=== PATIENT | male | born 2000 | race Caucasian/White ===

== ENCOUNTER 2024-08-18 15:32 | Emergency (ER) | payer SELFPAY ==
--- OUTSIDE RECORDS SUMMARY | 2024-08-18 15:35 | XMS_ITS | CONTINUITY OF CARE DOCUMENT ---
Author Name jhony alensadie Address Unknown Organization [facility] Address [address] [place] [address] Phone [phone] Care Team Providers Care Regional Driver Name Role Phone Alvin Ventura MD Unavailable TREVA IGLESIAS MD Unavailable [phone] PROBLEMS Condition Status Date Provider Notes Cardiology examination active Alvin Ventura MD Varicose veins active Alvin Ventura MD Family history of CAD active Alvin Jacobo ENCOUNTERS Date Type Provider Location Encounter Diag nosis - In-person encounter Office Visit Alvin Ventura MD [facility] - In-person encounter Office Visit Alvin Ventura MD [facility] Cardiology examinationVaricose veinsFamily history of CAD VITAL SIGNS Date Observation Value Provider Body Mass Index (Ratio) 44.63 kg/m2 Mirta Ventura MD blood pressure, diastolic 81 mm[Hg] Thelma Marcelino blood pressure, systolic 145 mm[Hg] Riley Marcelino oxygen saturation, oximetry 98 % Iman Marcelino pulse rate 87 /min Iman jacobo weight E&M 320 [lb_av] Iman jacobo respiratory rate E&M 16 /min Flaca Marcelino blood pressure, cuff size large Thelma Graysonand height E&M 71 [in_i] Iman jacobo Body Mass Index (Ratio) 44.63 kg/m2 Mirta Ventura MD blood pressure, diastolic 76 mm[Hg] Junie nkLogic blood pressure, systolic 136 mm[Hg] Glendy Martinoglaurel blood pressure, diastolic 76 mm[Hg] Nadine alcala Saul blood pressure, systolic 136 mm[Hg] Leonela olmstead Saul oxygen saturation, oximetry 95 % Rachelle Hughes respiratory rate E&M 18 /min Rachelle Hughes pulse rate 65 /min Rachelle Hughes height E&M 71 [in_i] Rachelle Hughes weight E&M 320 [lb_av] Rachelle Hughes HISTORY OF MEDICATION USE No Known Medication SOCIAL HISTORY Date Observation Value Provider social history E&M Patient vapes . Smoking History: Gurvinder sun has never smoked. Alvin Ventura MD social history reviewed E&M revi ewed - no changes required Alvin Ventura MD smoking status Never smoker Iman Grayson and number of grandchildren Alvin Ventura MD U berto Ventura MD drug use no Alvin Ventura MD alcohol use, average drinks per day social Alvin Ventura MD alcohol use yes Alvin Ventura MD social history E&M Patient vapes . Smoking History: Gurvinder dino has never smoked. Alvin Ventura MD smoking status Never smoker Alvin Ventura MD social history reviewed E&M revi ewed - no changes required Alvin Ventura MD INSURANCE PROVIDERS Payer name Policy type / Coverage type [facility] libertarian ID [id number] insurance [employer] [id number] ADVANCE DIRECTIVES Name Date DISCUSSED - NO DECISION MADE TREATMENT PLAN Date Name Performer [id number],S, Alvin Ventura MD [id number],C,P t used compression socks for a couple days but they have ripped when he uses them. He has severe GSV reflux bilaterally, worse on the right. He will need closure of the vein along with compression socks. He may need microphlebectomy Alvin Ventura MD [id number],S, Alvin Ventura MD [id number],C, H e has large varicosities on his medial thighs and calves. Will arrange for a venous doppler. I will give him a prescription for waist high compression hose. Alvin Ventura MD Cardiology Alvin Ventura MD Cardiology:Pt used c ompression socks for a couple days but they have ripped when he uses them. He has severe GSV reflux bilaterally, worse on the right. He will need closure of the vein along with compression socks. He may need microphlebectomy Alvin Ventura MD Cardiology Alvin Ventura MD Cardiology: H e has large varicosities on his medial thighs and calves. Will arrange for a venous doppler. I will give him a prescription for waist high compression hose. Alvin Ventura MD Date Name Venous Doppler Bilat erajordon LE - Reflux HISTORY OF PROCEDURES Procedure Date Procedure Name Provider Procedure Notes S tatus EKG Alvin Ventura MD completed
[2024-08-18 15:38] VITALS: BP 172/77; PULSE 93; RESP 18; TEMP 36.3; O2SAT 100
--- OUTSIDE RECORDS SUMMARY | 2024-08-18 16:11 | XMS_ITS | Clinical Summary ---
Author Organization [facility] Address [address] [place] [address] Care Team Providers Care Professor Of Biology Name Role Phone Marsha Cuevas MD Primary Care Provider [phone] Source Comments [facility] [employer],non-owned Affiliates and Associated Physician Practices is amultiple site organization consisting of ambulatory clinics and hospital sitesin [place], [place], [place] and [place]. This disclosure is being madepursuant to the Care Everywhere program and may not contain all information available regarding this patient. Last updated 18.[facility] [employer] Allergies No known active allergies Medications * Be aware that medications may not be up to date on this document. Alwaysverify current medications with the patient. Medication Sig Dispensed Refills Start Date End Date Status albuterol (PROVENTIL;VENTOLIN) (5 MG/ML) 0.5% nebulizer solution Inhale 2.5 mg by mouth 4 times daily as needed. Active albuterol HFA (PROVENTIL;VENTOLIN;P ROAIR) 108 (90 BASE) MCG/ACT inhaler Inhale 2 Puffs by mouth every 6 hours as needed. 1 Inhaler 5 04/11/2012 Active ibuprofen (MOTRIN) 400 MG tablet Take 1 Tab by mouth every 6 hours as needed for Pain 120 Tab 2 03/05/2016 Active Active Problems No known active problems Social History Tobacco Use Types Packs/Day Years Used Date Smoking Tobacco: Never Alcohol Use Standard Drinks/Week Comments Not Asked 0 (1 standard drink = 0.6 oz pur e alcohol) Sex and Gender Information Value Date Recorded Sex Assigned at Not on file Gender Identity Not on file Sexual Orientation Not on file Last Filed Vital Signs Vital Sign Reading Time Taken Comments Blood Pressure 129/50 04/10/2012 11:24 PM WELDING MACHINE OPERATOR RESISTANCE Pulse 108 04/11/2012 1:09 AM WELDING MACHINE OPERATOR RESISTANCE Temperature 36.7 C (98 F) 04/11/2012 1:09 AM WELDING MACHINE OPERATOR RESISTANCE Respiratory Rate 20 04/11/2012 1:09 AM WELDING MACHINE OPERATOR RESISTANCE Oxygen Saturation 97% 04/11/2012 1:23 AM WELDING MACHINE OPERATOR RESISTANCE Inhaled Oxygen Concentration - - Weight 76.7 kg (169 lb 1.5 oz) 04/10/2012 11:24 PM WELDING MACHINE OPERATOR RESISTANCE Height - - Body Mass Index - - Plan of Treatment Health Maintenance Due Date Last Done Comments HIV SCREENING 08/05/2015 HPV VACCINE (1 - Male 3-dose series) 08/05/2015 HEPATITIS C SCREENING 07/31/2018 DTAP/TDAP/TD VACCINES (1 - Tdap) 08/05/2019 HEPATITIS B VACCINE (1 of 3 - 19+ 3-dose series) 08/05/2019 COVID-19 VACCINE (1 - 2023-2 5 season) 2024 INFLUENZA VACCINE (#1) 2024 DEPRESSION SCREENING 05/30/2024 ZOSTER VACCINE (1 of 2) 2050 HIB VACCINE Aged Out No longer eligi ble based on patient's age to complete this topic MENINGOCOCCAL (Group B) VACC INE SHARED DECISION-MAKING Aged Out No longer eligibl e based on patient's age to complete this topic MENINGOCOCCAL GROUPS A/C/Y/W VACCINE Aged Out No longer eligible b ased on patient's age to complete this topic PNEUMOCOCCAL VACCINE Aged Out No long er eligible based on patient's age to complete this topic Care Teams Professor Of Biology Relationship Specialty Start Date End Date Marsha Cuevas MD [address] [address] PCP - General Pediatrics 04/11/12
--- OUTSIDE RECORDS SUMMARY | 2024-08-18 16:12 | XMS_ITS | CONTINUITY OF CARE DOCUMENT ---
Author Name jhony alensadie Address Unknown Organization [facility] Address [address] [place] [address] Phone [phone] Care Team Providers Care Traveling Sales Representative Name Role Phone Alvin Ventura MD Unavailable TREVA IGLESIAS MD Unavailable [phone] PROBLEMS Condition Status Date Provider Notes Cardiology examination active Alvin Ventura MD Varicose veins active Alvin Ventura MD Family history of CAD active Alvin Jacobo ENCOUNTERS Date Type Provider Location Encounter Diag nosis - In-person encounter Office Visit Alvin Ventura MD [facility] - In-person encounter Office Visit Alvin Ventura MD [facility] Cardiology examinationVaricose veinsFamily history of CAD [...] Payer name Policy type / Coverage type [facility] party ID [id number] insurance [employer] [id number] ADVANCE DIRECTIVES Name Date DISCUSSED - NO DECISION MADE TREATMENT PLAN Date Name Performer [id number],S, Alvin Ventura MD [id number],C,P t used compression socks for a couple days but they have ripped when he uses them. He has severe GSV reflux bilaterally, worse on the right. He will need closure of the vein along with compression socks. He may need microphlebectomy Alvin Ventura MD [id number],S, Alvin Ventura MD [id number],C, H e has large varicosities on his [...]
[2024-08-18] MEDS: TETANUS,DIPHTHERIA,AC PERTUSSIS ADULT (0.5 ML) BOOSTRIX IM (16:43)
--- NOTE | 2024-08-18 17:06 | ED.LOWEXIN ---
HPI - Extremity Injury (Lower) General Chief Complaint: Extremity Injury, Lower Stated Complaint: My varicose vein is spuing out blood. Time Seen by Provider: 08/18/24 15:47 History of Present Illness HPI Narrative: 24-year-old male presents emergency department for a bleeding varicose vein to his right lower extremity. Patient states he was cleaning his basement yesterday and the varicose vein to his right lower leg started bleeding. He went to [facility] states he had it wrapped up and was discharged home. He states the bleeding started again today and would not stop so he came to the ED for further evaluation. Last Tdap unknown. Related Data Allergies Allergy/AdvReac Type Severity Reaction Status Date / Time No Known Allergies Allergy Verified 08/18/24 16:31 Review of Systems Review of Systems: All systems reviewed & are unremarkable except as noted in HPI and below Exam Narrative: GENERAL: Well-appearing, well-nourished, and in no acute distress. HEAD: Normocephalic, atraumatic. ENT: Nares clear, no rhinorrhea or epistaxis. Mucous membranes moist. NECK: Supple. CHEST: Clear to auscultation. No respiratory distress. HEART: Regular rate and rhythm. No murmur heard. Normal peripheral pulses. EXTREMITIES: Normal range of motion. No edema. SKIN: Very superficial abrasion to the distal right lateral her tibia, no active bleeding but dried blood around skin. Multiple varicose veins to lower extremities NEURO: No focal deficits. Alert and oriented x3 Course Vital Signs Vital signs: Vital Signs Temperature 97.4 F L 08/18/24 15:38 Pulse Rate 93 08/18/24 15:38 Respiratory Rate 18 08/18/24 15:38 Blood Pressure 172/77 H 08/18/24 15:38 Pulse Oximetry 100 08/18/24 15:38 Oxygen Delivery Room Air 08/18/24 15:38 Temperature 97.4 F L 08/18/24 15:38 Pulse Rate 93 08/18/24 15:38 Respiratory Rate 18 08/18/24 15:38 Blood Pressure 172/77 H 08/18/24 15:38 Pulse Oximetry 100 08/18/24 15:38 Oxygen Delivery Room Air 08/18/24 15:38 MDM - Extremity Injury (Lower) MDM Narrative Medical decision making narrative: 24-year-old male presents emergency department for bleeding varicose vein. Vitals with the blood pressure otherwise unremarkable. Exam is significant for very small superficial abrasion to the right lower extremity over the lateral aspect of the tibia. There is no active bleeding. Tdap updated. Wound was cleaned with normal saline and a small amount of silver nitrate applied over the wound to ensure persistent hemostasis. Bandage was applied patient and was discharged home with supplies. He was given wound care instructions and return precautions. He is agreeable with the plan verbalized understanding. Discharged in stable condition. Discharge Plan Discharge Clinical Impression: Abrasion Patient Disposition: Home, Self-Care Condition: Stable Instructions: Antibiotic Form, Abrasion (ED) Additional Instructions: Your evaluated in the emergency department for bleeding varicose vein. We applied a small amount of silver nitrate over the wound to keep it from bleeding. Please continue to wear the pressure manages as discussed unchanged knees twice daily for sooner if they become saturated. Return to the emergency department if you develop persistent bleeding, fever, surrounding redness or other concerning symptoms. Patient Language: Citizen [place] Follow-up/Referrals: PHYSICIAN,[facility]' [Primary Care Provider] -
[2024-08-18 17:22] VITALS: BP 143/99; PULSE 99; RESP 16; O2SAT 100
== END 2024-08-18 17:23 | disposition home or self-care (01) ==
PROVIDERS: Emergency Provider Physician Assistant
DX: S80.811A Abrasion, right lower leg, initial encounter (principal); Z23 Encounter for immunization; X58.XXXA Exposure to other specified factors, initial encounter
CPT/HCPCS: 90471; 90715; 99282